=== PATIENT | female | born 1955 | race Caucasian/White ===

== ENCOUNTER 2017-07-12 18:54 | Inpatient (IN) | payer OTHER, BC ==
[~2017-07-12] VITALS: Ht 157.5 cm; Wt 86.4 kg
[2017-07-12 19:23] LABS: HEMATOCRIT 40.2 % (34.6-47.8); HEMOGLOBIN 13.9 g/dL (11.7-16.4); WHITE BLOOD COUNT 6.6 x10^3/uL (3.4-10)
[2017-07-12] MEDS ORDERED: PRAV40TA2 PO (20:04)
[2017-07-12] MEDS ORDERED: CITA40TA5 PO (20:05)
[2017-07-12] MEDS ORDERED: ESTR1TAB15 PO (20:05)
[2017-07-12] MEDS ORDERED: GABA-827 PO (20:06)
[2017-07-12] MEDS ORDERED: CYCL-259 PO (20:07)
[2017-07-12] MEDS ORDERED: DIAZ10TA4 PO (20:07)
[2017-07-12] MEDS ORDERED: BUTO10SP NAS (20:08)
[2017-07-12] MEDS ORDERED: CARB-139 PO (20:09)
[2017-07-12] MEDS ORDERED: RIVA1PAT23 EXT (20:10)
[2017-07-12] MEDS ORDERED: OXYC-296 PO (20:12)
[2017-07-12] MEDS ORDERED: IBUP-1223 PO (20:13)
[2017-07-12] MEDS ORDERED: DOXY100T9 PO (20:15)
[2017-07-12] MEDS: PLEASE ENTER ALLERGIES MC SCH ×2 (20:24)
[2017-07-12] MEDS ORDERED: DIAZEPAM 5 MG/ML, 2ML IV ONE (20:30)
[2017-07-12] MEDS ORDERED: ASPIRIN 325 MG TABLET PO STA (20:39)
[2017-07-12] MEDS: SODIUM CHLORIDE 0.9% 1,000 ML IV SCH (22:23)
[2017-07-12] MEDS ORDERED: ONDANSETRON 2MG/ML, 2ML IVPush PRN (22:30)
[2017-07-12] MEDS ORDERED: BISACODYL 10 MG SUPP PR PRN (22:30)
[2017-07-12] MEDS ORDERED: POLYETHYLENE GLYCOL 17 GM PACKET PO PRN (22:30)
[2017-07-12] MEDS ORDERED: DOCUSATE 100 MG CAPSULE PO PRN (22:30)
[2017-07-12] MEDS ORDERED: ENOXAPARIN 40 MG/0.4 ML SQ SCH (22:30)
[2017-07-12 22:51] VITALS: BP 116/78
[2017-07-12] MEDS: ACETAMINOPHEN 325 MG TABLET PO PRN (23:47)
[2017-07-13] MEDS: PLEASE ENTER ALLERGIES MC SCH ×2 (01:25)
[2017-07-13] MEDS ORDERED: ALBUTEROL SULFATE 2.5 MG/3 ML NPPB PRN (01:30)
[2017-07-13 02:00] VITALS: BP 135/89
[2017-07-13] MEDS ORDERED: ASPIRIN 325 MG TABLET EC PO SCH (06:00)
[2017-07-13] MEDS ORDERED: KETOROLAC 30 MG/1 ML IV ONE (06:00)
[2017-07-13 06:49] VITALS: BP 126/84
[2017-07-13] MEDS: SODIUM CHLORIDE 0.9% 1,000 ML IV SCH (08:39)
[2017-07-13] MEDS ORDERED: ESTRADIOL 1 MG TABLET PO SCH ×2 (09:00→21:00)
[2017-07-13] MEDS ORDERED: CITALOPRAM 20 MG TABLET PO SCH (09:00)
[2017-07-13] MEDS: ACETAMINOPHEN 325 MG TABLET PO PRN (12:15)
[2017-07-13 13:37] VITALS: BP 129/84
[2017-07-13] MEDS ORDERED: PRAVASTATIN 40 MG TABLET PO SCH (21:00)
== END 2017-07-13 16:29 | disposition home or self-care (01) | DRG 101 ==
LOC: EDBD 18:54 → ED 21:12 → MERGE 21:14 → EDIP 21:14 → 4EST 23:27 → DCLOUNGE 07-13 16:13
PROVIDERS: ADMIT Surgery; ATTEND Surgery
DX: R56.9 Unspecified convulsions (principal); G35 Multiple sclerosis; G71.19 Other specified myotonic disorders; F03.90 Unspecified dementia, unspecified severity, without behavioral disturbance, psychotic disturbance, mood disturbance, and anxiety; G45.9 Transient cerebral ischemic attack, unspecified; R47.81 Slurred speech; G89.4 Chronic pain syndrome; E78.5 Hyperlipidemia, unspecified; E86.0 Dehydration; E78.00 Pure hypercholesterolemia, unspecified; Z90.710 Acquired absence of both cervix and uterus; Z90.49 Acquired absence of other specified parts of digestive tract; Z88.2 Allergy status to sulfonamides; Z88.8 Allergy status to other drugs, medicaments and biological substances; Z86.73 Personal history of transient ischemic attack (TIA), and cerebral infarction without residual deficits
CPT/HCPCS: 36415; 70450; 71010; 80047; 80061; 81001; 84443; 85025; 85610; 85730; 87086; 93005; J1650; J1885; J7030